=== PATIENT | male | born 1960 | race Hispanic/Latino ===

== ENCOUNTER 2023-03-03 09:50 | Day surgery (SDC) | payer BC, OTHER ==
[2023-03-03] MEDS ORDERED: NA CHLORIDE 0.9% 1,000 ML ONE (10:50)
[2023-03-03] MEDS ORDERED: LIDOCAINE 1% MPF 5 ML VIAL ONE (11:38)
[2023-03-03] MEDS ORDERED: propofoL 200 MG/20 ML VIAL IV ONE ×2 (11:38→11:39)
--- NOTE | 2023-03-03 12:29 | EKG ---
Test Date: 2023-02-28 Test Time: 16:00:19 Head Of Cytogenetics: MARIA DEL CARMEN MEASUREMENT RESULTS: Intervals: Rate: 58 LA: 142 QRSD: 88 QT: 394 QTc: 386 [place]: P: 60 LA: 142 QRS: 33 T: -4 INTERPRETIVE STATEMENTS: Sinus bradycardia Nonspecific T wave abnormality Abnormal ECG No previous ECG available for comparison Electronically Signed On 03-03-23 12:22:16 TOP BOTTOM ATTACHING MACHINE OPERATOR by Riki Dockery
[2023-03-03 13:13] VITALS: BP 120/88; TEMP 7.3; O2SAT 100
== END 2023-03-03 13:05 | disposition home or self-care (01) ==
LOC: OR 09:50
PROVIDERS: ATTEND Surgery
PROC: 0DBM8ZX Excision of Descending Colon, Via Natural or Artificial Opening Endoscopic, Diagnostic (ICD-10-PCS; principal; 2023-03-03 12:00)
DX: Z12.11 Encounter for screening for malignant neoplasm of colon (principal); N42.9 Disorder of prostate, unspecified; K57.30 Diverticulosis of large intestine without perforation or abscess without bleeding; K64.8 Other hemorrhoids; D12.4 Benign neoplasm of descending colon; E11.9 Type 2 diabetes mellitus without complications
CPT/HCPCS: 93005; 80048; 36415; 82947; 88305; 45385; J2704; J2001; J7030